=== PATIENT | male | born 1940 | race Caucasian/White ===

== ENCOUNTER 2016-12-25 06:35 | Observation (INO) | payer OTHER, MEDICARE ==
[~2016-12-25 06:35] MED LIST: Buffered Lidocaine 1% SYRIN* 3 ML/SYR SYRINGE INTRADERM ONE; Dexamethasone IV* 4 MG/ML 1 ML (4 MG) IV SLOW PU ONE; Famotidine IV* 10 MG/ML 2 ML (20 mg) IV ONE
[2016-12-25] MEDS ORDERED: Dexamethasone IV* 4 MG/ML 1 ML (4 MG) ONE (07:06)
[2016-12-25] MEDS ORDERED: Famotidine IV* 10 MG/ML 2 ML (20 mg) ONE (07:06)
[2016-12-25] MEDS ORDERED: Lidocaine 1% MPF wEPI 200,000* 30 ML SDV ONE (07:07)
[2016-12-25] MEDS ORDERED: ceFAZolin 2 GM PREMIX(*) 2 GM/50 ML BAG IVPB ONE (07:07)
[2016-12-25] MEDS ORDERED: Bacitracin IV* 50,000 UNITS INJ ONE (07:08)
[2016-12-25] MEDS ORDERED: Thrombin 5,000 UNITS* 1 APPLIC KIT - topical use - TOPICAL ONE (07:08)
[2016-12-25] MEDS ORDERED: Gelfoam Sponge SIZE 100* SPONGE ONE (07:21)
[2016-12-25] MEDS ORDERED: fentaNYL* 50 MCG/ML 2 ML VIAL (100 MCG VIAL) IV PRN (07:24)
[2016-12-25] MEDS ORDERED: DiMENhydriNATE IV* 50 MG/ML VIAL IV PUSH PRN (07:24)
[2016-12-25] MEDS ORDERED: HYDROmorphone* 1 MG/ML 1 ML SYR IV PRN (07:24)
[2016-12-25] MEDS ORDERED: Midazolam* 1 MG/ML 2 ML VIAL (2 MG) ONE (07:35)
[2016-12-25] MEDS ORDERED: KETAMINE HCL* 50 MG/ML 10 ML VIAL ONE (07:35)
[2016-12-25] MEDS ORDERED: Lidocaine 1% INJ* 10 MG/ML 30 ML SDV ONE (07:38)
[2016-12-25] MEDS ORDERED: Propofol* 10 MG/ML 20 ML BTL IV PUSH ONE (08:31)
[2016-12-25] MEDS ORDERED: EPHEDrine (Pressors)* 50 MG/ML VIAL ONE (08:31)
[2016-12-25] MEDS ORDERED: Ketorolac INJ* 30 MG/ML 1 ML VIAL ONE ×2 (08:31→09:19)
[2016-12-25] MEDS ORDERED: Succinylcholine* 20 MG/ML 10 ML VIAL ONE (08:31)
[2016-12-25] MEDS ORDERED: Ondansetron INJ* 2 MG/ML VIAL ONE (08:31)
[2016-12-25] MEDS ORDERED: fentaNYL* 50 MCG/ML 2 ML VIAL (100 MCG VIAL) ONE ×2 (08:35→09:19)
[2016-12-25] MEDS ORDERED: HYDROcodone/ACETAMIN 5-325 MG* 1 TAB PO PRN ×2 (08:41→08:45)
[2016-12-25] MEDS ORDERED: Ondansetron INJ* 2 MG/ML VIAL IV PRN (08:41)
[2016-12-25] MEDS ORDERED: Acetaminophen TAB* 325 MG PO PRN (08:41)
[2016-12-25] MEDS ORDERED: Ketorolac INJ* 15 MG/ML 1 ML VIAL IV PUSH PRN (08:53)
--- NOTE | 2016-12-25 11:40 | RAD ---
INDICATION: Decompressive laminectomy L4-L5 COMPARISON: Lumbar spine November 20, 2016 TECHNIQUE: A single crosstable lateral images submitted . FINDINGS: A single image shows retractors in place and a probe placed immediately cephalad to the L4-L5 level. There is advanced multilevel degenerative disc disease.
--- NOTE | 2016-12-25 15:27 | PN ---
Progress Note - Progress Note SOAP: Subjective: [S/p decompressive lumbar laminectomy L4-5 on the right. POD #0. Feeling well; no pain medications needed. Ambulating well without pain. Eating and drinking without difficulty. Denies headache. Pre-op right leg pain improved. Eager to go home. ] Objective: [ Vital Signs: Temp Pulse Resp BP Pulse Ox 97.4 F 57 18 104/58 99 12/25/16 12:09 12/25/16 12:02 12/25/16 12:02 12/25/16 12:02 12/25/16 12:02 General: Alert and oriented. No distress. Neuro: Motor and sensory intact. Incision: Intact and without infection. Dressing in place. Extremities: Full ROM] Assessment: [Stable post-op.] Plan: [1. Discharge home today. 2. Discharge instructions discussed with the patient and his . ]
[2016-12-25 16:02] VITALS: BP 106/59
--- NOTE | 2016-12-26 23:37 | OP ---
DATE OF OPERATION: 12/25/16 - ROOM #334 DATE OF : 42 SURGEON: Dr. Román Aranda. GROUNDSKEEPER PORTER: MIKE Krishna. ANESTHESIOLOGIST: Joe Bardales MD ANESTHESIA: General. PRE-OP DIAGNOSIS: Foraminal stenosis, L4-5 on the right. POST-OP DIAGNOSIS: Foraminal stenosis, L4-5 on the right. OPERATIVE PROCEDURE: Decompressive lumbar laminectomy, L4-5 on the right with foraminotomy, L4-5 on the right. DESCRIPTION OF PROCEDURE: After satisfactory general anesthesia was obtained, the patient was placed on the operating table in the prone position with the chest supported on the Reece frame and the back slightly flexed. The lumbar region was then clipped, prepped, and draped in a sterile manner for lumbar laminectomy and the skin incision outlined from L4 to L5. This incision was infiltrated with 1% Xylocaine with epinephrine, after which it was turned down sharply to the level of the lumbar fascia. The fascia was divided along the spinous processes of L4 and L5 and the para-spinal musculature was stripped away from these posterior elements using the periosteal elevator and monopolar cautery. An intraoperative x-ray was obtained verifying proper interspace localization after which a partial hemilaminectomy was carried out by removing the inferior aspect of the L4 lamina and medial aspect of the facet complex using combination of the Midas Fermin drill and Kerrison rongeurs. At the level of the L5 pedicle, there was noted to be marked compression on the L5 nerve root. This was decompressed with Kerrison until the L5 nerve root was noted to be free in its course. Feeling beneath the L5 nerve root, the disk was noted to be quite firm and likely calcified. This disk was not disturbed. At the conclusion of the decompression, it was felt that the nerve root was free in its course. There did seem to be a small area of exposed arachnoid over the lateral edge of the nerve root sleeve. There was no leakage of cerebrospinal fluid noted. A piece of Gelfoam was placed over this area after which, DuraSeal was applied as a tissue adhesive. The fascia was then reapproximated with 0 Vicryl suture. The subcutaneous tissue was closed with 3-0 Vicryl suture and the skin closed with skin clips. The estimated blood loss was less than 50 cc and the final sponge, pad, and needle counts were correct. The patient was taken to the recovery room, extubated and in stable condition. [id number]/[facility] #: [id number] [facility]
--- NOTE | 2016-12-27 01:44 | DS ---
DISCHARGE SUMMARY: DATE OF ADMISSION: 12/25/16 DATE OF DISCHARGE: 12/25/16 DISCHARGE DIAGNOSIS: Lumbar spinal stenosis L4-5 on the right. SPECIAL PROCEDURE: Decompressive lumbar laminectomy L4-5 on the right. HOSPITAL COURSE: This 76-year-old male was seen in the office with severely symptomatic nerve root compromise that was interfering with his activity for the past 3 years. He failed to improve with conservative treatment and was admitted at this time for elective surgical intervention. On the day of admission, he was taken to surgery where under general anesthesia, a decompressive lumbar laminectomy at L4-5 on the right operation was carried out. Postoperatively he was feeling well. He was ambulating independently. He was eating, drinking and voiding without difficulty. The preoperative symptoms in the right lower extremity were improving. He was not consuming any pain medications. On day of surgery he was discharged home to the care of the family. DISCHARGE INSTRUCTIONS: Discharge instructions including wound care and activity level were discussed with the patient and provided. He will be seen in the office in approximately 7 to 10 days for followup and staple removal. DISCHARGE MEDICATIONS: [place] 5/325 mg 1 to 2 tabs by mouth every 4 hours as needed for pain. MIKE HUITRON [id number]/[facility] #: [id number] [place]
== END 2016-12-25 17:50 | disposition home or self-care (01) ==
LOC: OR 06:35 → SSU 08:41
PROVIDERS: ADMIT Neurological Surgery; ATTEND Anesthesiology
PROC: 01NB0ZZ Release Lumbar Nerve, Open Approach (ICD-10-PCS; 2016-12-25)
PROC: 0SB20ZZ Excision of Lumbar Vertebral Disc, Open Approach (ICD-10-PCS; principal; 2016-12-25 07:45)
DX: M48.06 Spinal stenosis, lumbar region (principal); Z87.891 Personal history of nicotine dependence
CPT/HCPCS: 72100; 96374; A9270-GY; G0378; J0330; J0690; J1100; J1885; J2001; J2250; J2405; J2704; J3010